=== PATIENT | female | born 1955 | race Caucasian/White ===

== ENCOUNTER → 2016-08-05 | Outpatient (CLI) | payer OTHER ==
[~2016-08-05] MED LIST: MOME50SP5; VERA180T33 PO
--- NOTE | 2016-08-05 13:25 | MAMMOGRAPHY REPORT ---
BILATERAL DIGITAL SCREENING MAMMOGRAM WITH CAD: 08/05/2016 CLINICAL HISTORY: Routine screening. Patient has no complaints. TECHNIQUE: Current study was also evaluated with a Computer Aided Detection (CAD) system. Bilatera l CC and MLO views were obtained. COMPARISON: Comparison is made to exams dated: 08/01/2015 mammogram, 07/24/2012 mammogram, 07/30/2014 mammogram, 07/26/2013 mammogram, 07/19/2011 mammogram, and 07/16/2010 mammogram - [facility]. BREAST COMPOSITION: The tissue of both breasts is almost entirely fatty. FINDINGS: No suspicious masses, calcifications, or areas of architectural distortion are noted in e ither breast. There has been no significant interval change compared to prior exams. IMPRESSION: ACR BI-RADS CATEGORY 1: NEGATIVE There is no mammographic evidence of malignancy. A 1 year screening mammogram is recommended. The p atient will receive written notification of the results. Approximately 10% of breast cancers are not detected with mammography. A negative mammographic repor t should not delay biopsy if a clinically suggestive mass is present. Kiarra Arizmendi M.D. /:08/05/2016 09:14:22 Manager Of Creative Services: Neyda MURPHY(R)(M), [facility] letter sent: Normal 1/2 BI-RADS Code: ACR BI-RADS Category 1: Negative
== END | disposition home or self-care (01) ==
LOC: C.MAMM 08:35
PROVIDERS: ATTEND Obstetrics & Gynecology
DX: Z12.31 Encounter for screening mammogram for malignant neoplasm of breast (principal)

== ENCOUNTER → 2016-11-11 | Outpatient (CLI) | payer OTHER ==
[2016-11-11 11:00] LABS: ESTIMATED AVERAGE GLUCOSE 128 mg/dl; HA1C FLAG Normal (Normal)
[2016-11-11 14:00] LABS: BLOOD UREA NITROGEN 11 mg/dl (7-18); BUN/CREATININE RATIO 15.5 (10-20); CALCIUM 9.5 mg/dl (8.5-10.1); CARBON DIOXIDE 26 mmol/L (21-32); CHLORIDE 110 mmol/L (98-107); CREATININE 0.74 mg/dl (0.60-1.20); GLUCOSE 109 mg/dl (70-99); POTASSIUM 3.9 mmol/L (3.5-5.1); SODIUM 144 mmol/L (136-145)
[2016-11-11 14:11] LABS: ALB/GLOB RATIO 1.2 (0.9-2); ALKALINE PHOSPHATASE 91 U/L (45-117); ALT/SGPT 23 U/L (12-78); AST/SGOT 14 U/L (15-37); CHOLESTEROL 185 mg/dl (0-200); CHOLESTEROL/HDL RATIO 2.1; HDL CHOLESTEROL 90 mg/dl; LDL CHOLESTEROL CALCULATED 81 mg/dl; TRIGLYCERIDES 69 mg/dl (0-150); VERY LOW DENSITY LIPOPROT CALC 14 mg/dl
== END | disposition home or self-care (01) ==
LOC: C.LABBC 09:13
PROVIDERS: ATTEND Internal Medicine
DX: E53.8 Deficiency of other specified B group vitamins (principal); Z11.59 Encounter for screening for other viral diseases

== ENCOUNTER → 2017-07-18 | Outpatient (CLI) | payer OTHER ==
[~2017-07-18] MED LIST changes: +CHOL1000 PO; +CYAN10005 PO; +ESCI10TA17 PO; -MOME50SP5; +MULT-190 PO; +NAPR1TAB9 PO; -VERA180T33 PO; +[UNRECOGNIZED DRUG - CODE] PO
== END | disposition home or self-care (01) ==
LOC: C.PATHSPEC 11:40
PROVIDERS: ATTEND Obstetrics & Gynecology
DX: N84.1 Polyp of cervix uteri (principal)

== ENCOUNTER → 2017-07-18 | Outpatient (CLI) | payer OTHER | END | disposition home or self-care (01) | LOC: C.PAPS 12:16 | PROVIDERS: ATTEND Obstetrics & Gynecology | DX: Z12.4 Encounter for screening for malignant neoplasm of cervix (principal) ==

== ENCOUNTER 2017-08-05 10:28 | Day surgery (SDC) | payer OTHER ==
[2017-07-05 14:51] VITALS: Ht 152.4 cm; Wt 96.3 kg
--- NOTE | 2017-07-05 15:15 | PAT Medication Instructions ---
Service Date Jul 05, 2017. Current Home Medication List Sjiewwrcvj-Zofmfdbiw-Cdcmmtwpe (Amlodipine/Valsartan/Hctz 10-320-25 mg), 1 TAB PO QAM Cholecalciferol (Vitamin D3), 1 TAB PO QAM Cyanocobalamin (Vitamin B-12), 1,000 MCG PO QAM Escitalopram (Lexapro), 10 MG PO QPM Naproxen (Aleve), 220 MG PO BID PRN for Pain Ocuvite Preservision (Ocuvite Preservision), 1 TAB PO QAM Medication Instructions For Your Scheduled Surgery - Check with surgeon for instructions: Naproxen (Aleve), 220 MG PO BID PRN for Pain - Hold the following medications the morning of surgery: Amakaedywz-Cgaxoxpov-Mpttbozev (Amlodipine/Valsartan/Hctz 10-320-25 mg), 1 TAB PO QAM Cholecalciferol (Vitamin D3), 1 TAB PO QAM Cyanocobalamin (Vitamin B-12), 1,000 MCG PO QAM Ocuvite Preservision (Ocuvite Preservision), 1 TAB PO QAM - Take the following medications as scheduled the night before surgery: Escitalopram (Lexapro), 10 MG PO QPM If you have any questions please call us at [phone] or [phone] or [phone]
[2017-07-05 15:58] LABS: BASO % 0.9 %; BASO ABS # 0.07 K/uL (0-0.2); EOS % 4.1 %; EOS ABS # 0.33 K/uL (0-0.5); HEMATOCRIT 44.3 % (37-47); HEMOGLOBIN 14.8 g/dL (12.0-16.0); IG# 0.01 K/uL (0.00-0.02); LYMPH % 24.2 %; LYMPH ABS # 1.94 K/uL (1.2-3.4); MEAN CELL VOLUME 85.2 fL (80-100); MEAN CORPUSCULAR HEMOGLOBIN 28.5 pg (25-34); MEAN CORPUSCULAR HGB CONC 33.4 g/dl (32-36); MEAN PLATELET VOLUME 12.3 fL (7.4-10.4); MONO % 8.1 %; MONO ABS # 0.65 K/uL (0.11-0.59); NEUT % 62.6 %; NEUT ABS # 5.03 K/uL (1.4-6.5); PLATELET COUNT 268 K/uL (130-400); RED CELL DISTRIBUTION WIDTH SD 46.5 fL (36.4-46.3); WHITE BLOOD COUNT 8.03 K/uL (4.8-10.8)
--- NOTE | 2017-07-05 16:05 | DIAGNOSTIC IMAGING REPORT ---
TWO VIEW CHEST CLINICAL HISTORY: Preoperative examination. FINDINGS: PA and lateral chest radiographs are compared to study dated 01/02/2012. The cardiomediastinal silhouette is unremarkable. The lungs and pleural spaces are clear. There is no pneumothorax. The skeletal structures are osteopenic. Degenerative change and mild hyperkyphosis are noted in the thoracic spine. IMPRESSION: No active disease in the chest. Electronically signed by: Ritchie Richard M.D. 07/05/2017 4:03 PM Dictated Date/Time: 07/05/2017 4:03 PM
[2017-07-05 16:11] LABS: PTT PATIENT 27.5 SECONDS (21.0-31.0)
[2017-07-05 16:41] LABS: CALCIUM 9.9 mg/dl (8.5-10.1); CREATININE 0.65 mg/dl (0.60-1.20)
--- NOTE | 2017-08-04 14:55 | HISTORY & PHYSICAL EXAMINATION ---
DATE OF ADMISSION: 08/05/2017 PREOPERATIVE DIAGNOSIS: Medium size rotator cuff tear of the right shoulder. HISTORY OF PRESENT ILLNESS: Heidi is a pleasant 62-year-old female who has been dealing with a year long history of right shoulder pain. Clinically, I diagnosed her with a possible rotator cuff tear. Her shoulder hurts her at night when she sleeps. I then sent her for an MRI. The MRI confirmed a medium size rotator cuff tear of her shoulder. After failing extensive conservative treatment, she elected to proceed with a shoulder arthroscopy to include rotator cuff repair. PAST MEDICAL HISTORY: Significant for hypertension, osteoarthritis and obesity. However, she recently lost 23 pounds. PAST SURGICAL HISTORY: Significant for D&C. ALLERGIES: None. MEDICATIONS: Include amlodipine/valsartan, citalopram, and vitamin B12. SOCIAL HISTORY: She denies any tobacco, alcohol or IV drug use. FAMILY HISTORY: Denies. REVIEW OF SYSTEMS: Complains of right shoulder pain and weakness. All other pertinent review of systems negative. PHYSICAL EXAMINATION: GENERAL: She is awake, alert and oriented x3. She is in no apparent distress. She is very pleasant. HEENT: Pupils equal, round, reactive to light. Extraocular motions intact. Oral mucosa was pink and moist. HEART: Regular rate per radial pulse. LUNGS: [place]ona symmetrically bilaterally with no audible breath sounds. ABDOMEN: Soft, nontender, and nondistended. MUSCULOSKELETAL: On physical examination of her shoulder, she has full active range of motion in the office. She has 4/5 muscle strength with full can testing. Negative bear hug and belly press test. She has a lot of pain in the subacromial space and positive Neer and Blackmon impingement signs. MRI of the right shoulder does show a medium size rotator cuff tear with minimal retraction. IMPRESSION: Medium sized right rotator cuff tear. PLAN: We will proceed with a right shoulder arthroscopy to include medium size rotator cuff repair. Postoperatively, she will be placed in an arm sling and discharged to home on oral pain medications.
[~2017-08-05] VITALS: Ht 152.4 cm; Wt 96.3 kg
[~2017-08-05 10:28] MED LIST changes: +ACETAMINOPHEN 500 MG TAB PO SCH; +CEFAZOLIN 2000MG IV PUSH 15 ML IV SCH; +DEXAMETHASONE SOD INJ 4 MG/ML VIAL ONE; +FAMOTIDINE 20 MG TAB PO SCH; +GABAPENTIN 600 MG PO SCH; +LACTATED RINGER'S 1000ML 1,000 ML IV SCH; +LACTATED RINGER'S 1000ML IV SCH; +ROPIVACAINE 0.5% 5 MG/ML 30 ML VIAL ONE
--- NOTE | 2017-08-05 11:00 | History & Physical Bridge Note ---
H&P Re-Evaluation Bridge Note: I have examined the patient, reviewed the History & Physical and in the interval since the performance of the History & Physical I have noted the following changes of clinical significance: No changes noted
[2017-08-05 11:03] VITALS: BP 155/91; PULSE 69; TEMP 36.9; O2SAT 95
[2017-08-05] MEDS ORDERED: ONDANSETRON INJ 2 MG/ML 2 ML VIAL IV PRN ×3 (12:00→14:45)
[2017-08-05] MEDS ORDERED: EpHEDrine SULFATE INJ 50 MG/ML AMP IV PRN ×2 (12:00→12:30)
[2017-08-05] MEDS ORDERED: FENTANYL CITRATE INJ 50 MCG/1 ML 2 ML VIAL IV PRN (12:00)
[2017-08-05] MEDS ORDERED: LABETALOL HCL IV 5 MG/ML 20ML IV PRN (12:00)
[2017-08-05] MEDS ORDERED: MEPERIDINE HCL 25 MG/ML CARP IV PRN (12:00)
[2017-08-05] MEDS ORDERED: HYDROmorphone INJ 1 MG/ML SYR IV PRN (12:00)
[2017-08-05] MEDS ORDERED: ATROPINE SULFATE 0.1 MG/ML 5ML SYR IV PRN ×2 (12:00→12:30)
[2017-08-05] MEDS ORDERED: MIDAZOLAM HCL 1 MG/ML 2ML VIAL ONE (12:09)
[2017-08-05] MEDS ORDERED: EpINEphrine HCL INJ 1 MG/ML 1ML SYRINGE ONE (12:15)
[2017-08-05] MEDS ORDERED: BUPIVACAINE/EPINEPHRINE 0.5% MPF 1:200,000 30 ML VIAL ONE (12:16)
[2017-08-05] MEDS ORDERED: HYDROmorphone INJ 2 MG/ML SYR/VIAL IV PRN (12:30)
[2017-08-05] MEDS ORDERED: PHENYLEPHRINE 100MCG/ML 5ML SYR IV PRN (12:30)
[2017-08-05] MEDS ORDERED: FENTANYL CITRATE INJ 50 MCG/1 ML 2 ML VIAL ONE (12:49)
[2017-08-05] MEDS ORDERED: PROPOFOL IV EMULSION 10 MG/ML 20 ML VIAL IV ONE (13:19)
[2017-08-05] MEDS ORDERED: LIDOCAINE HCL 2% 2 ML VIAL (20MG/ML) ONE (13:19)
[2017-08-05] MEDS ORDERED: EpHEDrine SULFATE 50MG/5ML SYR ONE (13:25)
--- NOTE | 2017-08-05 14:36 | [facility] Post Operative Brief Note ---
Immediate Operative Summary Operative Date Aug 05, 2017. Pre-Operative Diagnosis Medium sized right rotator cuff tear Post-Operative Diagnosis same as preop Procedure(s) Performed Right Shoulder Arthroscopy Medium Rotator Cuff Repair, Biceps tenodesis and acriomyplasty Surgeon Dr. Sancho Dupont Assembler Wire Mesh Gate Surgeon(s) None Estimated Blood Loss 5 ml Findings Consistent with Post-Op Diagnosis Specimens none Anesthesia Type General Regional Complication(s) none Disposition Disposition: Recovery Room / PACU
[2017-08-05] MEDS ORDERED: SODIUM CHLORIDE 0.9% 1000ML 1,000 ML IV SCH (14:40)
--- NOTE | 2017-08-05 14:40 | Discharge Instructions-SurgCtr ---
Discharge Instructions Date of Service Aug 05, 2017. Visit Reason for Visit: Right Shoulder Full Thickness Rotator Cuff Tear Discharge Discharge Diagnosis / Problem: as above Discharge Goals Goal(s): Decrease discomfort, Improve function Activity Recommendations Activity Limitations: per Instructions/Follow-up section sling for 4 weeks, follow instructions provided by our office Anesthesia . Post Anesthesia Instructions: If you have had General Anesthesia or IV Sedation: * Do not drive today. * Resume driving when surgeon permits. * Do not make important decisions or sign legal documents today. * Call surgeon for: 1. Temperature elevations greater than 101 degrees F. 2. Uncontrollable pain. 3. Excessive bleeding. 4. Persistent nausea and vomiting. 5. Medication intolerance (nausea, vomiting or rash). * For nausea and vomiting use only clear liquids such as: tea, soda, bouillon until nausea subsides, then gradually increase diet as tolerated. * If you have any concerns or questions, call your surgeon's office. If physician is unavailable and it is an emergency, call 911 or go to the nearest emergency room. . Instructions / Follow-Up Instructions / Follow-Up sling for 4 weeks, follow instructions provided by our office Diet Recommendations Home Diet: resume previous diet Procedures Procedures Performed: Right Shoulder Arthroscopy Medium Rotator Cuff Repair, Biceps tenodesis and acriomyplasty Pending Studies Studies pending at discharge: no Medical Emergencies . Who to Call and When: Medical Emergencies: If at any time you feel your situation is an emergency, please call 911 immediately. . Non-Emergent Contact Non-Emergency issues call your: Surgeon Call Non-Emergent contact if: wound has increased drainage, wound has increased redness . . "Provider Documentation" section prepared by Sancho Dupont. .
[2017-08-05] MEDS ORDERED: OXYCODONE/ACETAMINOPHEN 5-325 TAB PO PRN (14:45)
[2017-08-05] MEDS ORDERED: MoRPHine SULFATE 2 MG/ML CARP IV PRN ×2 (14:45)
[2017-08-05] MEDS ORDERED: METOCLOPRAMIDE HCL INJ 5 MG/ML 2 ML VIAL IV PRN (14:45)
[2017-08-05 15:30] VITALS: BP 145/68; PULSE 79; TEMP 36.4; O2SAT 91
--- NOTE | 2017-08-05 15:31 | Anesthesiology Progress Note ---
Anesthesia Post Op Note Date & Time Aug 05, 2017 at 15:31 Vital Signs Pain Intensity: 0 Vital Signs Past 12 Hours Date Time Temp Pulse Resp B/P (MAP) Pulse Ox O2 Delivery O2 Flow Rate FiO2 08/05/17 15:21 144/66 08/05/17 15:19 77 17 08/05/17 15:19 78 17 95 08/05/17 15:16 144/66 08/05/17 15:14 80 16 08/05/17 15:14 81 16 93 08/05/17 15:13 85 20 08/05/17 15:13 85 20 94 08/05/17 15:11 136/55 08/05/17 15:08 80 14 08/05/17 15:08 79 14 96 08/05/17 15:07 36.0 82 18 144/66 (81) 95 Nasal Cannula 2 08/05/17 15:06 136/61 08/05/17 15:03 84 20 95 08/05/17 15:03 83 20 08/05/17 15:02 80 18 08/05/17 15:02 79 18 95 08/05/17 15:01 80 17 08/05/17 15:01 80 17 138/60 95 08/05/17 14:56 83 20 08/05/17 14:56 83 20 128/64 94 08/05/17 14:51 84 19 135/66 93 08/05/17 14:51 85 19 08/05/17 14:48 143/57 08/05/17 14:46 36.0 85 18 143/57 (73) 93 Oxymask 10 08/05/17 11:03 36.9 69 18 155/91 (112) 95 Room Air Notes Mental Status: alert / awake / arousable, participated in evaluation Pt Amnestic to Procedure: Yes Nausea / Vomiting: adequately controlled Pain: adequately controlled Airway Patency, RR, SpO2: stable & adequate BP & HR: stable & adequate Hydration State: stable & adequate Anesthetic Complications: no major complications apparent
--- NOTE | 2017-08-05 15:46 | OPERATIVE REPORT ---
DATE OF OPERATION: 08/05/2017 PREOPERATIVE DIAGNOSIS: Severe external impingement with medium sized rotator cuff tear. POSTOPERATIVE DIAGNOSIS: Same. PROCEDURE: Right shoulder diagnostic arthroscopy with limited debridement, acromioplasty, medium sized rotator cuff repair and arthroscopic biceps tenodesis. SURGEON: Dr. Sancho Dupont. EDGE SETTER: Michael Singh PA-C, whose assistance was necessary for positioning the arm and help with instrumentation. ANESTHESIA: General with a right interscalene nerve block. COMPLICATIONS: None. CONDITION: Stable to PACU. INDICATIONS: Heidi is a pleasant 62-year-old female who has been having a year long history of right shoulder pain. MRI and clinical examination were diagnostic for severe external impingement with medium sized rotator cuff tear. After failing conservative treatment, she elected to undergo arthroscopy. DESCRIPTION OF PROCEDURE: On 08/05/2017, she arrived at [facility] for the above procedure. She was seen in the preoperative holding area and the operative extremity was identified and signed, she was given a preoperative antibiotic and a right interscalene nerve block. She was taken back to the operating room, laid on the table in supine position and put under general anesthesia. She was then put into the beachchair position. The right shoulder was prepped and draped in sterile fashion. Time-out was done. The patient was properly identified. A scope was introduced in the posterior portal. Diagnostic arthroscopy showed no cartilage damage to the humeral head or the glenoid. There was some fraying of the anterior labrum. There was some fraying of the long head of the biceps tendon. The subscapularis was intact. There was a tear of the entire supraspinatus. The infraspinatus and teres minor were intact. An anterior portal was made, a shaver was used to do a limited debridement of the intraarticular structures and the biceps tendon was arthroscopically tenotomized for later tenodesis. The scope was then put into the subacromial space. A lateral portal was made. A shaver was used to do a complete subacromial and subdeltoid bursectomy. An ablator was used to tease the coracoacromial ligament off the undersurface of the acromion and a 5-0 zion was used to complete an acromioplasty of a very large Bigliani type 3 acromion. A shaver was used to remove any excess debris and attention was turned to the rotator cuff. An additional anterolateral portal was made and Cait cannulas were placed in each of the lateral portals. The tuberosity was prepared with a ring curette and a microfracture. The rotator cuff was then fixed with an Arthrex SpeedBridge configuration using a 4.75 mm BioComposite SwiveLock suture anchors and FiberTapes. This gave a nice knotless SpeedBridge repair. Multiple pictures were taken. The long head of the biceps tendon was tagged with a FiberLink earlier and incorporated into the anterior medial anchor. This completed an arthroscopic biceps tenodesis. The scope was placed back into the glenohumeral joint and the articular margin of the rotator cuff had been restored. Pictures were taken. Arthroscopic instruments were removed from the shoulder. Portal sites were closed with 3-0 nylon. She was then placed in a soft dressing and a right arm sling. She was then extubated, transferred to a litter and taken to the postanesthesia care unit in stable condition. She tolerated the procedure well. I attest to the content of the Intraoperative Record and any orders documented therein. Any exception s are noted below.
[2017-08-05 16:00] VITALS: BP 149/67; PULSE 71; O2SAT 93
[2017-08-05 16:28] VITALS: BP 155/70; PULSE 66; TEMP 36.5; O2SAT 93
== END 2017-08-05 16:45 | disposition home or self-care (01) ==
LOC: C.ACU 10:28
PROVIDERS: ATTEND Orthopaedic Surgery
DX: M75.101 Unspecified rotator cuff tear or rupture of right shoulder, not specified as traumatic (principal); M75.41 Impingement syndrome of right shoulder; E66.01 Morbid (severe) obesity due to excess calories; I10 Essential (primary) hypertension; M19.90 Unspecified osteoarthritis, unspecified site; F32.9 Major depressive disorder, single episode, unspecified; Z68.41 Body mass index [BMI] 40.0-44.9, adult; Z79.899 Other long term (current) drug therapy

== ENCOUNTER → 2017-09-30 | Outpatient (CLI) | payer OTHER ==
[~2017-09-30] MED LIST changes: -ACETAMINOPHEN 500 MG TAB PO SCH; -CEFAZOLIN 2000MG IV PUSH 15 ML IV SCH; -DEXAMETHASONE SOD INJ 4 MG/ML VIAL ONE; -FAMOTIDINE 20 MG TAB PO SCH; -GABAPENTIN 600 MG PO SCH; -LACTATED RINGER'S 1000ML 1,000 ML IV SCH; -LACTATED RINGER'S 1000ML IV SCH; -ROPIVACAINE 0.5% 5 MG/ML 30 ML VIAL ONE
--- NOTE | 2017-10-03 07:47 | MAMMOGRAPHY REPORT ---
BILATERAL DIGITAL SCREENING MAMMOGRAM TOMOSYNTHESIS WITH CAD: 09/30/2017 CLINICAL HISTORY: Routine screening. Patient has no complaints. TECHNIQUE: Breast tomosynthesis in addition to standard 2D mammography was performed. Current study was also evaluated with a Computer Aided Detection (CAD) system. COMPARISON: Comparison is made to exams dated: 08/05/2016 mammogram, 08/01/2015 mammogram, 07/30/2014 ma mmogram, 07/26/2013 mammogram, 07/24/2012 mammogram, and 07/19/2011 mammogram - [facility]. BREAST COMPOSITION: The tissue of both breasts is almost entirely fatty. FINDINGS: No suspicious masses, calcifications, or areas of architectural distortion are noted in ei ther breast. There has been no significant interval change compared to prior exams. IMPRESSION: ACR BI-RADS CATEGORY 1: NEGATIVE There is no mammographic evidence of malignancy. A 1 year screening mammogram is recommended. The pa tient will receive written notification of the results. Approximately 10% of breast cancers are not detected with mammography. A negative mammographic report should not delay biopsy if a clinically suggestive mass is present. Kiarra Arizmendi M.D. /:09/30/2017 09:56:45 External Grinder Tool: Neyda MURPHY(R)(M), [facility] letter sent: Normal 1/2 BI-RADS Code: ACR BI-RADS Category 1: Negative
== END | disposition home or self-care (01) ==
LOC: C.MAMM 09:27
PROVIDERS: ATTEND Obstetrics & Gynecology
DX: Z12.31 Encounter for screening mammogram for malignant neoplasm of breast (principal)

== ENCOUNTER 2019-07-13 06:31 | Inpatient (IN) ==
--- NOTE | 2019-06-13 15:39 | PAT Medication Instructions ---
Medication Instructions Date of Service June 13, 2019 Home Medications cholecalciferol (vitamin D3) 25 mcg (1,000 unit) capsule 1,000 units PO DAILY cyanocobalamin (vitamin B-12) 1,000 mcg tablet 1,000 mcg PO DAILY naproxen sodium 220 mg capsule 220 mg PO BID telmisartan 80 mg tablet 80 mg PO QAM vit C 50 mg-E 15 unit-zinc cit 4.5 mg-lutein 2.5 mg-zeaxan chew tablet 1 tab PO DAILY doxycycline hyclate 20 mg tablet 20 mg PO DAILY PRN amlodipine 10 mg PO QAM escitalopram oxalate 10 mg PO HS ASK your surgeon for instructions naproxen sodium 220 mg capsule 220 mg PO BID STOP taking 2 weeks before surgery If surgery is within 2 weeks, stop taking as soon as possible. vit C 50 mg-E 15 unit-zinc cit 4.5 mg-lutein 2.5 mg-zeaxan chew tablet 1 tab PO DAILY DO NOT take the morning of surgery cholecalciferol (vitamin D3) 25 mcg (1,000 unit) capsule 1,000 units PO DAILY cyanocobalamin (vitamin B-12) 1,000 mcg tablet 1,000 mcg PO DAILY telmisartan 80 mg tablet 80 mg PO QAM Take morning of surgery With a small sip of water, OTHERWISE NOTHING TO EAT OR DRINK AFTER MIDNIGHT: doxycycline hyclate 20 mg tablet 20 mg PO DAILY PRN (if needed) amlodipine 10 mg PO QAM Take evening before surgery doxycycline hyclate 20 mg tablet 20 mg PO DAILY PRN (if needed) escitalopram oxalate 10 mg PO HS Other Notes If you have any questions please call us at [phone] or [phone] or [phone] or [phone]
--- NOTE | 2019-06-14 08:31 | Anesthesiology Consultation ---
Date of Service June 14, 2019 Assessment & Plan (1) Encounter for pre-operative examination: Chart Review Chart Review: Acceptable Risk for Surgery (PENDING PRE OP TESTING -- LABS, CXR, EKG) and Patient seen in Pre Admission Testing Teaching & Discussion Instructed NPO after midnight before surgery, except medications with 15 cc of water. Medication instructions provided according to the PAT guidelines. History Surgery Operation Date: 07/13/19 11:10 Proposed Procedures p Left Total Knee Arthroplasty - Rivas Angel MD Height/Weight Height: 5 ft Weight: 97.2 kg Allergies Allergy/AdvReac Type Severity Reaction Status Date / Time Erythromycin TABS AdvReac Unknown STOMACH Uncoded 06/08/19 08:06 UPSET Lotensin TABS AdvReac Unknown WASN'T Uncoded 06/08/19 08:06 EFFECTIVE Medications Home Medications Medication Instructions Recorded Confirmed Last Taken cholecalciferol (vitamin D3) 25 1,000 units PO DAILY 01/06/19 06/08/19 Unknown mcg (1,000 unit) capsule cyanocobalamin (vitamin B-12) 1,000 mcg PO DAILY tab 01/06/19 06/08/19 Unknown 1,000 mcg tablet naproxen sodium 220 mg capsule 220 mg PO BID #2 cap 01/06/19 06/08/19 Unknown telmisartan 80 mg tablet 80 mg PO QAM #90 tab 01/06/19 06/08/19 Unknown vit C 50 mg-E 15 unit-zinc cit 4.5 1 tab PO DAILY tab 01/06/19 06/08/19 Unknown mg-lutein 2.5 mg-zeaxan chew tablet doxycycline hyclate 20 mg tablet 20 mg PO DAILY PRN tab 01/18/19 06/08/19 Unknown amlodipine 10 mg PO QAM 06/08/19 06/08/19 Unknown escitalopram oxalate 10 mg PO HS 06/08/19 06/08/19 Unknown Past Medical History Medical History (Updated 06/14/19 @ 08:33 by Tom Meyer) Depression Herniated disc NECK & BACK. H/O LE WEAKNESS, RESOLVED WITH PT HTN (hypertension) Morbid obesity Osteoarthritis Sciatica HX OF Exercise / Class Metabolic Activity II 4-5 Yardwork/Stairs/Walk up hill (DENIES CP OR SOB WITH 1 FOS, DOES STAIRS DAILY, JUST SLOW 2/2 KNEE PAIN) Past Surgical History Surgical History (Updated 06/08/19 @ 08:13 by Gaudencio Coello RN) H/O colonoscopy History of dilation and curettage Hx of shoulder surgery August 2017 -- torn rotator cuff repair - R Past Anesthesia History No Hx of Anesthesia Complications and No Family Hx of Anesthesia Complications SHOULDER SCOPE 08/2017 = MAC #3, ETT 7.0, grade view II. History of PONV No Hx of PONV and No Hx of Motion Sickness Social History Smoking Status: Never smoker Do You Dip or Chew Tobacco: No Hx Alcohol Use: Yes Alcohol type: beer alcohol intake frequency: a few times a week Hx Substance Use: No substance use type: does not use Review of Systems Pt denies any recent chest pain, shortness of breath, palpitations, cough, fever or URI. Physical Exam Vital Signs BP: 123/67 P: 78bpm SPO2: 96% RA T: 98.1 F R: 16 Constitutional + obese ENMT Mouth: + dental restorations (few crowns); no chipped teeth and no loose teeth Thyromental Distance: > or= 3.5 Finger Breadths (3.5) Mallampati Class: III Neck + short neck; neck extension not limited Respiratory normal respiratory effort Auscultation: lungs clear to auscultation bilaterally Cardiovascular Rate/Rhythm: regular rate and regular rhythm Heart Sounds: no murmur
--- NOTE | 2019-06-14 09:16 | XRay Report ---
XR chest Pre-admission PA/Lat CLINICAL HISTORY: Preoperative chest COMPARISON STUDY: 07/05/2017 FINDINGS: The cardiac and mediastinal contours are normal. There is no evidence of focal pulmonary co nsolidation. There is no evidence of failure. No pleural effusions are visualized.[ IMPRESSION: No active disease in the chest. ACT 112: Negative or not required by law. Electronically signed by: Delbert Bailey M.D. 06/14/2019 9:15 AM
[2019-06-14 11:16] LABS: Basophils # (auto) 0.05 K/uL (0-0.2); Basophils % (auto) 0.8 %; Eosinophils # (auto) 0.22 K/uL (0-0.5); Eosinophils % (auto) 3.6 %; Hematocrit (blood only) 42.9 % (37-47); Hemoglobin 13.9 g/dL (12.0-16.0); Immature Granulocytes # (auto) 0.01 K/uL (0.00-0.02); Immature Granulocytes % (auto) 0.2 %; Lymphocytes # (auto) 1.76 K/uL (1.2-3.4); Lymphocytes % (auto) 28.6 %; Mean Corpuscular Hemoglobin 28.8 pg (25-34); Mean Corpuscular Hgb Conc 32.4 g/dL (32-36); Mean Platelet Volume 11.4 fL (7.4-10.4); Monocytes # (auto) 0.44 K/uL (0.11-0.59); Monocytes % (auto) 7.1 %; Neutrophils # (auto) 3.68 K/uL (1.4-6.5); Neutrophils % (auto) 59.7 %; Platelet Count 313 K/uL (130-400); RDW Coefficient of Variation 15.2 % (11.5-14.5); RDW Standard Deviation 49.6 fL (36.4-46.3); Red Blood Count 4.82 M/uL (4.2-5.4); White Blood Count 6.16 K/uL (4.8-10.8)
[2019-06-14 11:24] LABS: BUN Creatinine Ratio 18.8 (10-20); Calcium 9.5 mg/dl (8.5-10.1); Creatinine Clr Calc Pharmacy 76.1 ml/min; Est GFR (African American) 93.1; Est GFR (Non-African American) 80.3; Potassium 4.1 mmol/L (3.5-5.1)
[2019-06-14 11:38] LABS: Partial Thromboplastin Ratio 0.9; Partial Thromboplastin Time 25.2 Seconds (21.0-31.0); Prothrombin Time 10.3 Seconds (9.0-12.0)
--- NOTE | 2019-06-14 23:35 | Electrocardiogram Report ---
Test Reason : Blood Pressure : / mmHG Vent. Rate : 061 BPM Atrial Rate : 061 BPM P-R Int : 174 ms QRS Dur : 078 ms QT Int : 424 ms P-R-T Axes : 067 021 027 degrees QTc Int : 426 ms Normal sinus rhythm Septal infarct , age undetermined Abnormal ECG When compared with ECG of 05-JUL-2017 15:29, Premature atrial complexes are no longer Present Confirmed by Jean Paul Vaz ([id number]) on 06/14/2019 11:35:35 PM Referred By: Rivas Angel Confirmed By:Jean Paul Vaz
--- NOTE | 2019-07-07 13:54 | History and Physical Report ---
DATE OF ADMISSION: 07/13/2019 CHIEF COMPLAINT: Bilateral knee pain and discomfort, left side greater than the right. HISTORY OF PRESENT ILLNESS: The patient is a 64-year-old female who presents for treatment of her knees. She has got a long history of bilateral knee pain and discomfort, left side is a bit worse than the right. She has seen Dr. Marcano for her knees about 12 years ago. She has been through extensive conservative treatment over the years including steroid shots, which have not helped recently. She has had viscosupplementation, which did not help at all. She describes global pain in both knees, a little bit more medial than elsewhere. She has a limited walking tolerance due to the pain. She has difficulty going up and down stairs. She has nighttime pain. She has been through a course of therapy, which strengthened her muscles, but did not help her pain. She would now like to have her left knee fixed. PAST MEDICAL HISTORY: Significant for: 1. Hypertension. 2. Obesity with a BMI of 42. 3. Back pain. PAST SURGICAL HISTORY: Includes: 1. D and C. 2. Right shoulder surgery. 3. Herniated disk surgery. ALLERGIES: None. CURRENT MEDICINES: Include: 1. Amlodipine. 2. Telmisartan. 3. Citalopram. 4. Aleve. 5. Vitamin D. 6. Vitamin B12. 7. Unspecified eye medicine. SOCIAL HISTORY: A 64-year-old female. She is . Does not smoke. FAMILY HISTORY: Noncontributory. REVIEW OF HISTORY: Negative for diabetes, neurologic problem, vascular problems or bleeding disorders. Denies any chest pain or shortness of breath. No history of DVT or PE. PHYSICAL EXAMINATION: GENERAL: Shows a pleasant, middle-aged female. Looks to be in pretty good health. HEENT: Benign. NECK: Supple, no lymphadenopathy. LUNGS: Clear to auscultation. HEART: Regular rate and rhythm. ABDOMEN: Soft, nontender, nondistended. EXTREMITIES: Grossly neurovascularly intact except as follows: Examination of both knees reveals patient walks with a slight bit of a limp. Examination of the left knee reveals varus deformity. She is tender over the medial joint line with some bony hypertrophy. Small knee effusion. Range of motion about 5 degrees short of full extension to 120 degrees of flexion. There is no instability. No pain with hip motion. Examination of the right knee reveals slight varus alignment. Moderate soft tissue envelope. Trace knee effusion. Range of motion 0-125. No instability. X-RAYS: X-rays of both knees reveal advanced bilateral knee DJD. The left side is a bit worse than right. She has complete loss of medial joint space and some osteophytes off the medial femoral condyle and medial tibial plateau. There is significant subchondral sclerosis. ASSESSMENT: A 64-year-old female who had a long history of bilateral knee pain and discomfort that has gradually gotten worse and unresponsive to conservative care. The left knee is bothered more than the right and she would like to have her left knee replaced. PLAN: We are going to proceed with left knee replacement. The risks and benefits of this procedure were explained to the patient including but not limited to DVT, PE, , infection, neurological injury, vascular injury, bleeding problem, pain, limited range of motion, stiffness, failure to her relieve symptoms, incomplete relief of symptoms, need for further surgery in the future, fracture, leg length inequality, nerve palsy, persistent pain. The patient understands and desires to proceed. Informed consent was obtained. As far as discharge plans, she should be able to be discharged home.
[~2019-07-13 06:31] MED LIST changes: +ACETAMINOPHEN 500 MG TAB PO SCH; +BUPIVACAINE 0.5 % 5 MG/1 ML PF 10ML VIAL ONE; +BUPIVACAINE LIPOSOME/PF 266 MG, BUPIVACAINE/EPINEPHRINE 50 ML, SODIUM CHLORIDE 0.9% 30 ... INFIL SCH; +CEFAZOLIN 2000MG 2,000 MG/15 ML SYR IV SCH; -CHOL1000 PO; -CYAN10005 PO; +EPINEPHrine INJ 1 MG/ML AMP ONE; -ESCI10TA17 PO; +GABAPENTIN 600 MG DOSE PO SCH; +LR 500ML BOLUS, THEN 15ML/HR IV SCH; +LR 60ML/HR IV SCH; +METOCLOPRAMIDE HCL 10 MG TABLET PO SCH; -MULT-190 PO; -NAPR1TAB9 PO; +ROPIVACAINE 0.5% 5 MG/ML 30 ML VIAL ONE; +SCOPOLAMINE 1.5 MG TDSY TD SCH; +TRANEXAMIC ACID 1,000 MG **IV Intra-op IV SCH; -[UNRECOGNIZED DRUG - CODE] PO
--- NOTE | 2019-07-13 06:56 | History & Physical Bridge Note ---
Date of Service July 13, 2019 History & Physical Bridge Note I have examined the patient, reviewed the History & Physical and in the interval since the performance of the History & Physical I have noted the following changes of clinical significance: no changes noted
[2019-07-13] MEDS: FAMOTIDINE 20 MG TAB PO SCH (07:37)
[2019-07-13] MEDS ORDERED: fentaNYL citrate 100 MCG/2 ML VIAL ONE (08:07)
[2019-07-13] MEDS ORDERED: MIDAZOLAM HCL 1 MG/ML 2ML VIAL ONE (08:07)
[2019-07-13] MEDS ORDERED: SODIUM CHLORIDE 0.9% PF 50 ML VIAL ONE (09:02)
[2019-07-13] MEDS ORDERED: BUPIVACAINE/EPINEPHRINE 0.25% 1:200,000 30 ML VIAL ONE ×2 (09:02→09:04)
[2019-07-13] MEDS ORDERED: BACITRACIN INJ 50,000 UNIT VIAL ONE (09:03)
[2019-07-13] MEDS ORDERED: BUPIVACAINE LIPOSOME 1.3% 266 MG/20 ML VIAL ONE (09:03)
[2019-07-13] MEDS ORDERED: VANCOMYCIN HCL 1000MG/20ML VIAL ONE (10:04)
[2019-07-13] MEDS ORDERED: PHENYLEPHRINE 100MCG/ML 5ML SYR ONE (10:48)
[2019-07-13] MEDS ORDERED: PROPOFOL IV EMULSION 10 MG/ML 20 ML VIAL IV ONE (10:48)
[2019-07-13] MEDS ORDERED: ePHEDrine sulfate 50 MG/ML SYR ONE (10:48)
[2019-07-13] MEDS ORDERED: LIDOCAINE HCL 2% 2 ML VIAL/AMP(20MG/ML) INFIL ONE (10:52)
--- NOTE | 2019-07-13 11:15 | Post Operative Brief Note ---
PG Immediate Post Op with CF Date of Surgery July 13, 2019 Pre & Post Diagnosis Operation Date: 07/13/19 08:50 Pre-Op Diagnosis: LEFT KNEE DEGENERATIVE JOINT DISEASE W/KNEE PAIN Post-Op Diagnosis: LEFT KNEE DEGENERATIVE JOINT DISEASE W/KNEE PAIN I identified the patient and participated in the time-out.: Yes Procedure Operation Date: 07/13/19 08:50 Actual Procedures p Left Total Knee Arthroplasty(Left) - Rivas Angel MD Surgeon Rivas Angel MD Rn Utilization Management Um Zach, PAC Estimated Blood Loss 50 Findings Consistent with Post-Op Diagnosis Fluids 1600 cc Specimens Specimen Description: Permanent specimen: A. Left knee bone and tissue Drains Adames Catheter Anesthesia Type Spinal MAC Complications none Disposition Accompanied Patient To Recovery: No Disposition: Recovery Room
--- NOTE | 2019-07-13 11:38 | XRay Report ---
XR knee LT 1 or 2V routine HISTORY: 64 years-old Female Surgical Post Op left knee total joint arthroplasty. History of degener ative joint disease COMPARISON: None TECHNIQUE: 2 views of the left knee FINDINGS: Left knee total joint arthroplasty and patella resurfacing. Anterior midline skin yoly are noted a long with expected postsurgical soft tissue swelling and deep tissue air. No acute fracture, malalign ment or retained foreign body. IMPRESSION: Left knee total joint arthroplasty with expected postoperative findings. ACT 112: Negative or not required by law. The above report was generated using voice recognition software. It may contain grammatical, syntax o r spelling errors. Electronically signed by: Tigre Mercado M.D. 07/13/2019 11:36 AM
[2019-07-13] MEDS ORDERED: ePHEDrine sulfate 50 MG/ML AMP IV PRN (11:39)
[2019-07-13] MEDS ORDERED: ATROPINE SULFATE 0.1 MG/ML 10ML SYR IV PRN (11:39)
--- NOTE | 2019-07-13 11:50 | Operative Report ---
Post Operative Report Pre & Post Diagnosis Operation Date: 07/13/19 08:50 Pre-Op Diagnosis: LEFT KNEE DEGENERATIVE JOINT DISEASE W/KNEE PAIN Post-Op Diagnosis: LEFT KNEE DEGENERATIVE JOINT DISEASE W/KNEE PAIN I identified the patient and participated in the time-out.: Yes Procedure Operation Date: 07/13/19 08:50 Actual Procedures p Left Total Knee Arthroplasty(Left) - Rivas Angel MD Surgeon Rivas Angel MD Vinyl Cutter Zach, PAC Estimated Blood Loss 50 Findings Consistent with Post-Op Diagnosis Operative findings revealed advanced left knee DJD with a pretty extensive grade 4 [id number] disease of the medial and patellofemoral compartments of the eburnation in both areas. She had some spotty grade 4 changes laterally. Moderate-sized joint effusion. Fluids 1600 cc. Specimens Left knee sent for pathology. Drains None. Anesthesia Type Spinal MAC Complications none Disposition Accompanied Patient To Recovery: No Disposition: Recovery Room Indications Patient is a 64-year-old female is had a long history of bilateral knee pain discomfort that is gradually just gotten worse over the past 10+ years. She is been through extensive conservative treatment which became less successful over time. X-rays showed a bilateral knee DJD. The left side was worse than the right. She elected proceed with left total knee arthroplasty. Description of Procedure Operative implants consist of: 1. Biomet Vanguard size 57.5 left posterior by femoral component. 2. Biomet size 63 tibial tray. 3. 10 mm posterior box polyethylene insert. 4. 28 x 8 all poly-patella. Patient was taken to the operating room identified and placed on the operating table supine position protectors were properly padded. IV antibiotics were provided by the anesthesia team. A spinal anesthetic and abductor canal block had provided holding area. Adames catheter was placed in sterile fashion. A left thigh high tourniquet was then placed in the left lower extremities and prepped and draped in usual sterile fashion. Left leg was elevated and exsanguinated with use of an Esmarch and turns placed at 3 mmHg. An anterior approach left knee was then performed to longitudinal incision centered over the patella. Sharp dissection was carried through subcutaneous tissue down to over the extensor mechanism. A medial parapatellar arthrotomy incision was made. The subperiosteal dissection was carried out medially. The fat pad was resected from each patella tendon. Lateral patellofemoral ligament was released. Patella was subluxated laterally and the knee was flexed. The osteophytes taken off the distal femur. The ACL and PCL w ere then released in the distal femur and the tibia subluxated anteriorly. The external tibial alignment jig was then placed in the interface the tibia and adjusted 14 mm medially. Proximal tibial cut was made to remove about 2 to 3 mm of bone from the medial side. Some osteophytes were taken off medial and posterior medially. Tibia sized to a size 63. Attention drawn the femur. The distal femur was entered with the sharp drill. Intramedullary guide was placed and the 5 degrees cutting guide was pinned in place. Distal femoral cut was made to take an additional 3 mm of bone off distal femur. The femur was then sized to a size 57.5. It was downsized slightly. The AP cutting block was pinned parallel to the epicondylar axis which was sent 7 degrees of external rotation. The anterior cut, anterior chamfer, posterior cut, posterior chamfer cuts were made. Box cutting guide was placed in just slight lateral and the box cut was made. The knee was flexed. The remnants of medial lateral menisci were excised. The osteophytes were taken off the posterior aspect the femur. Trial femoral component was placed. The tibial tray was then pinned in maximum external rotation and drill and stem punch were used to create defect in the proximal tibia for the tibial tray. Knee was then trialed the 10 mm insert fit most appropriately. Attention drawn the patella. New per the patella was cleaned of all soft tissues. Patella thick this was quite thin and worn. It measured about 16 mm and cut down to about 12. It was sized to size 28 patella. Locals were drilled for the 28 patella. The lateral osteophyte is moved. Patella button was placed. Knee was taken through range of motion patella tracked nicely with no thumbs test. Attention turned to placing the permanent components. All trial components were removed. Bone plug was placed in the disc femur limit blood loss put a double batch Pal[place]os G cement was mixed. I did add an additional gram of vancomycin. The size 57.5 left posterior by femoral component, size 63 tibial tray, 10 mm posterior box polyethylene insert, and a 28 x 8 all poly-patella then cement in place. Knees brought under full extension total cement hardened. Final cement check was then performed. Pericapsular tissues were injected with total 100 cc of combination of 20 of Exparel, 30 cc normal saline, 50 cc 1% Marcaine with epinephrine. Patient did receive 1 g of tranexamic acid. The tourniquet was then let down for tourniquet time of 66 minutes. Hemostasis assured use electrocautery. The wound was once again irrigated. The extensor mechanism then closed with combination 1 PDS suture #1 Vicryl suture in a [id number] fashion. The extensor mechanism checked found to be intact the subcutaneous tissue then closed with 2 Dexon suture in a buried interrupted fashion skin was closed skin yoly. Leg was then cleaned dried a sterile dressing composed Xeroform, 4 x 4's, sterile cast padding, Sarthak bandage were applied. Patient then transferred to the recovery room in stable condition. Patient tolerated procedure well no complications. I attest to the content of the Intraoperative Record and any orders documented therein. Any exceptions are noted below.
--- NOTE | 2019-07-13 12:08 | Anesthesiology Progress Note ---
Date of Service July 13, 2019 Anesthesia Post Procedure Vital Signs Vital Signs: Temp Pulse Pulse Resp BP Pulse Ox 07/13/19 11:40 37.2 C 69 14 111/47 L 92 07/13/19 11:30 72 18 110/47 L 94 07/13/19 11:21 37.1 C 92 H 16 108/49 L 97 07/13/19 06:57 37.1 C 78 20 152/77 H 96 Pain Intensity Left Knee: Pain Intensity: 5 Transfer of Care Handoff Completed per policy Notes Mental Status: alert / awake / arousable Patient Amnestic to Procedure: Yes Nausea / Vomiting: adequately controlled Pain: adequately controlled Airway Patency, RR, SpO2: stable & adequate BP & HR: stable & adequate Hydration State: stable & adequate Neuraxial Anesthesia: was administered and sensory block is resolving Anesthetic Complications: no major complications apparent and Pt Satisfied with anesthetic care
[2019-07-13] MEDS ORDERED: bisacodyL 10 MG SUPP PR PRN (12:19)
[2019-07-13] MEDS ORDERED: ALUMINUM/MAGNESIUM SUSP 30 ML UDC PO PRN (12:19)
[2019-07-13] MEDS ORDERED: ONDANSETRON INJ 2 MG/ML 2 ML VIAL IV PRN (12:19)
[2019-07-13] MEDS ORDERED: NALOXONE HCL 0.4 MG/1 ML VIAL/CARP IV PRN (12:19)
[2019-07-13] MEDS ORDERED: METOCLOPRAMIDE HCL INJ 5 MG/ML 2 ML VIAL IV PRN (12:19)
[2019-07-13] MEDS ORDERED: HYDROmorphone INJ 0.5 MG/0.5 ML SYR IV PRN (12:19)
[2019-07-13] MEDS ORDERED: MAGNESIUM HYDROXIDE SUSP 30 ML UDC PO PRN (12:19)
[2019-07-13] MEDS ORDERED: INFLUENZA VIRUS QUAD VACCINE 0.5 ML SYR IM ONE (12:31)
[2019-07-13] MEDS ORDERED: INFLUENZA ADMINISTRATION CHARGE ONE (12:31)
[2019-07-13] MEDS: KETOROLAC 30 MG/ML VIAL IV SCH ×2 (12:42→18:00)
[2019-07-13] MEDS: SODIUM CHLORIDE 0.9% 1000ML 1,000 ML IV SCH ×2 (12:42→21:17)
[2019-07-13] MEDS: TRAMADOL HCL 50 MG TABLET PO PRN (13:43)
[2019-07-13] MEDS: ACETAMINOPHEN 500 MG TAB PO SCH ×2 (13:43→21:17)
[2019-07-13] MEDS: CHECK SCOPOLAMINE PATCH PLACEMENT SCH (15:48)
[2019-07-13] MEDS: CEFAZOLIN 2000MG 2,000 MG/15 ML SYR IV SCH (16:50)
[2019-07-13] MEDS ORDERED: TRANEXAMIC ACID / 0.7% NACL 1,000 MG/100 ML BAG IV SCH (17:19)
[2019-07-13] MEDS: FERROUS GLUCONATE 324 MG TAB PO SCH (17:58)
[2019-07-13] MEDS: ASCORBIC ACID 500 MG TAB PO SCH (17:58)
[2019-07-13] MEDS: SENNA 8.6 MG TAB PO SCH (20:22)
[2019-07-13] MEDS: ESCITALOPRAM OXALATE 10 MG TAB PO SCH (20:22)
[2019-07-13] MEDS: DOCUSATE SODIUM 100 MG CAP PO SCH (20:22)
[2019-07-13] MEDS: ASPIRIN 81 MG ECTAB PO SCH (20:22)
[2019-07-14] MEDS: KETOROLAC 30 MG/ML VIAL IV SCH ×5 (01:20→23:39)
[2019-07-14] MEDS: CHECK SCOPOLAMINE PATCH PLACEMENT SCH (01:20)
[2019-07-14] MEDS: CEFAZOLIN 2000MG 2,000 MG/15 ML SYR IV SCH (01:21)
[2019-07-14] MEDS: ACETAMINOPHEN 500 MG TAB PO SCH ×3 (06:12→22:12)
[2019-07-14] MEDS: FAMOTIDINE 20 MG TAB PO SCH (06:13)
[2019-07-14 06:55] LABS: Hematocrit (blood only) 35.4 % (37-47); Hemoglobin 11.6 g/dL (12.0-16.0); Mean Corpuscular Hemoglobin 28.3 pg (25-34); Mean Corpuscular Hgb Conc 32.8 g/dL (32-36); Mean Corpuscular Volume 86.3 fL (80-100); Mean Platelet Volume 9.8 fL (7.4-10.4); Platelet Count 248 K/uL (130-400); RDW Coefficient of Variation 14.8 % (11.5-14.5); RDW Standard Deviation 46.9 fL (36.4-46.3); White Blood Count 7.33 K/uL (4.8-10.8)
[2019-07-14 07:21] LABS: BUN Creatinine Ratio 12.7 (10-20); Calcium 9.1 mg/dl (8.5-10.1); Creatinine Clr Calc Pharmacy 82.1 ml/min; Est GFR (African American) 102.6; Est GFR (Non-African American) 88.5; Potassium 3.8 mmol/L (3.5-5.1)
--- NOTE | 2019-07-14 08:07 | Progress Note ---
DATE: 07/14/2019 SUBJECTIVE: A 64-year-old female postop day 1 from left knee replacement. She is doing pretty well. Had a pretty good night. Pain is controlled. No chest pain or shortness of breath. Not feeling dizzy or lightheaded. OBJECTIVE: VITAL SIGNS: Temperature 36.7. Vital signs stable. GENERAL: Shows a pleasant, middle-aged female. She is lying in bed, looks pretty comfortable. EXTREMITIES: Examination of the left leg reveals the leg to be well aligned. Dressing is clean, dry and intact. She can dorsiflex and plantarflex her foot appropriately. She is neurologically intact. LABORATORY DATA: Hemoglobin 11.6. Hematocrit 35.4. Electrolytes are pending. ASSESSMENT: A 64-year-old female postop day 1 from left knee replacement, doing pretty well. Pain is controlled. She is neurologically intact. PLAN: 1. DVT prophylaxis including thigh-high TEDs, SCDs, and aspirin twice a day. 2. PT/OT. Weight bear as tolerated. Left total knee protocol. 3. Pain control, doing pretty well with current pain regimen. 4. Disposition: Plan to discharge to home with some outpatient therapy once medically stable and recovered.
[2019-07-14] MEDS: FERROUS GLUCONATE 324 MG TAB PO SCH ×2 (08:33→17:33)
[2019-07-14] MEDS: CHOLECALCIFEROL 1,000 UNITS 25 MCG TAB PO SCH (08:33)
[2019-07-14] MEDS: CYANOCOBALAMIN 500 MCG TABLET (VITAMIN B-12) PO SCH (08:33)
[2019-07-14] MEDS: ASPIRIN 81 MG ECTAB PO SCH ×2 (08:33→21:04)
[2019-07-14] MEDS: AMLODIPINE BESYLATE 5 MG TAB PO SCH (08:33)
[2019-07-14] MEDS: MULTIVITAMIN TAB PO SCH (08:33)
[2019-07-14] MEDS: DOCUSATE SODIUM 100 MG CAP PO SCH ×2 (08:33→21:04)
[2019-07-14] MEDS: TRAMADOL HCL 50 MG TABLET PO PRN ×2 (08:33→14:48)
[2019-07-14] MEDS: ASCORBIC ACID 500 MG TAB PO SCH ×2 (08:33→17:33)
[2019-07-14] MEDS: TELMISARTAN 40 MG TAB PO SCH (08:33)
[2019-07-14] MEDS ORDERED: NON-FORMULARY MEDICATION (Vit C-E-Zinc Cit-Lutein-Zeaxan [Ocuvite Eye Health] 1 TAB) PO SCH (09:00)
--- NOTE | 2019-07-14 20:14 | Anesthesiology Progress Note ---
Date of Service July 14, 2019 Anesthesia Post Procedure Vital Signs Vital Signs: Temp Pulse Pulse Resp BP BP Pulse Ox 07/14/19 15:11 36.7 C 66 17 148/74 H 95 07/14/19 07:36 36.7 C 57 L 20 121/70 92 07/14/19 03:07 36.7 C 60 17 129/75 93 07/13/19 23:06 36.6 C 69 15 123/77 92 Pain Intensity Left Knee: Pain Intensity: 6 Notes Mental Status: alert / awake / arousable and participated in evaluation Nausea / Vomiting: adequately controlled Pain: adequately controlled Airway Patency, RR, SpO2: stable & adequate BP & HR: stable & adequate Hydration State: stable & adequate Neuraxial Anesthesia: was administered and sensory block resolved Anesthetic Complications: no major complications apparent and Pt Satisfied with anesthetic care
[2019-07-14] MEDS: SENNA 8.6 MG TAB PO SCH (21:04)
[2019-07-14] MEDS: ESCITALOPRAM OXALATE 10 MG TAB PO SCH (21:05)
[2019-07-15] MEDS: FAMOTIDINE 20 MG TAB PO SCH (04:17)
[2019-07-15] MEDS: KETOROLAC 30 MG/ML VIAL IV SCH (05:55)
[2019-07-15] MEDS: ACETAMINOPHEN 500 MG TAB PO SCH (05:55)
[2019-07-15] MEDS: TELMISARTAN 40 MG TAB PO SCH (08:37)
[2019-07-15] MEDS: ASCORBIC ACID 500 MG TAB PO SCH (08:37)
[2019-07-15] MEDS: ASPIRIN 81 MG ECTAB PO SCH (08:37)
[2019-07-15] MEDS: CYANOCOBALAMIN 500 MCG TABLET (VITAMIN B-12) PO SCH (08:37)
[2019-07-15] MEDS: CHOLECALCIFEROL 1,000 UNITS 25 MCG TAB PO SCH (08:37)
[2019-07-15] MEDS: FERROUS GLUCONATE 324 MG TAB PO SCH (08:37)
[2019-07-15] MEDS: AMLODIPINE BESYLATE 5 MG TAB PO SCH (08:37)
[2019-07-15] MEDS: MULTIVITAMIN TAB PO SCH (08:37)
[2019-07-15] MEDS: DOCUSATE SODIUM 100 MG CAP PO SCH (08:37)
[2019-07-15] MEDS: TRAMADOL HCL 50 MG TABLET PO PRN (08:42)
--- NOTE | 2019-07-15 08:51 | Progress Note ---
DATE: 07/15/2019 SUBJECTIVE: A 64-year-old female postop day #2 from left knee replacement. She is doing pretty well. Pain is a little bit better today. Still very manageable. No chest pain or shortness of breath. Not feeling dizzy or lightheaded. OBJECTIVE: VITAL SIGNS: Temperature 36.6. Vital signs stable. GENERAL: Shows a pleasant, middle-aged female. She is sitting up in bed and looks pretty comfortable. EXTREMITIES: Examination of the left leg reveals incision to be clean, dry and intact. No significant drainage. Calf is soft and supple. She is neurologically intact. ASSESSMENT: A 64-year-old female postop day #2 from a left knee replacement, doing pretty well. Pain is controlled. PLAN: 1. DVT prophylaxis including thigh-high TEDs, SCDs, and aspirin twice a day. 2. PT/OT. Weight bear as tolerated. Left total knee protocol. 3. Pain control, doing pretty well with current pain regimen. 4. Disposition: Plan to discharge to home. She is going to do outpatient therapy likely later today.
--- NOTE | 2019-07-16 16:44 | Discharge Summary ---
ADMITTING PHYSICIAN AND SURGEON: Dr. Rivas Angel. ADMITTING DIAGNOSIS: Left knee degenerative joint disease. SURGERY PERFORMED: Left total knee arthroplasty. SECONDARY DIAGNOSES: Hypertension, obesity, back pain. CONSULTS: None obtained. HISTORY AND PHYSICAL EXAMINATION: Well documented in the patient's chart. HOSPITAL COURSE: The patient was admitted on 07/13/2019 underwent total knee arthroplasty, tolerated the procedure well. There were no complications. She was transferred to the PACU postoperatively and later to the orthopedic floor for further care. She was given Ancef for antibiotic prophylaxis, TAIWO stockings, SCDs and aspirin for DVT prophylaxis. Hemoglobin, hematocrit and vital signs were monitored during her hospital stay and remained stable. She did not require any blood transfusions. There were no complications. By postoperative day 2, she was tolerating a regular diet, pain was controlled with oral pain medicine. She was participating in physical therapy. Postop day 2, she was discharged home. She was given printed discharge instructions as well as new prescriptions for extra strength Tylenol, aspirin and tramadol. Continue her home medicines. Continue physical therapy, weightbearing as tolerated, TAIWO stockings. Follow up approximately 2 weeks postop or sooner if there are any problems or concerns.
== END 2019-07-15 10:32 | disposition home or self-care (01) | DRG 470 ==
LOC: ASU 06:31 → 3E 11:20